=== PATIENT | male | born 1990 | race Caucasian/White ===

== ENCOUNTER 2020-04-13 00:38 | Emergency (ER) | payer SELFPAY ==
--- NOTE | 2020-04-13 02:05 | ER Document Report ---
ED GI/ - General Chief Complaint: Testicular Pain Stated Complaint: BODY PAIN Time Seen by Provider: 04/13/20 02:01 Notes: CHIEF COMPLAINT: Testicular pain HPI: 29-year-old male presenting to the emergency department complaining of bilateral testicular pain that began around 8 PM tonight. Patient states he has been having intermittent pain in the testicles over the last year. Has not seen anyone for evaluation of this issue. Denies abdominal or rectal pain. Denies penile discharge. Denies dysuria. States the pain is been more constant I started in the right testicle now in both testicles. Denies back pain or flank pain. ROS: See HPI - all other systems were reviewed and are otherwise negative Constitutional: no fever Eyes: no drainage, no blurred vision ENT: no runny nose, no sore throat Cardiovascular: no chest pain Resp: no SOB, no cough GI: no vomiting, no diarrhea, no abdominal pain : no dysuria, positive testicular pain Integumentary: no rash Allergy: no hives Musculoskeletal: no extremity pain or swelling Neurological: no numbness/tingling, no weakness MEDICATIONS: I agree with the patient medications as charted by the RN. ALLERGIES: I agree with the allergies as charted by the RN. PAST MEDICAL HISTORY/PAST SURGICAL HISTORY: Reviewed and agree as charted by RN. SOCIAL HISTORY: Reviewed and agree as charted by RN. FAMILY HISTORY: No significant familial comorbid conditions directly related to patient complaint EXAM: Reviewed vital signs as charted by RN. CONSTITUTIONAL: Alert and oriented and responds appropriately to questions. Well-appearing; well-nourished HEAD: Normocephalic; atraumatic EYES: Conjunctivae clear, sclerae non-icteric ENT: normal nose; no rhinorrhea; moist mucous membranes NECK: Supple without meningismus CARD: symmetric distal pulses RESP: Normal chest excursion without splinting or tachypnea ABD/GI: Normal bowel sounds; non-distended; soft, non-tender, no rebound, no guarding; no palpable organomegaly or masses. : Circumcised male. Bilateral testicles are descended and mildly bilaterally tender to palpation with no palpable masses. No visible inguinal or scrotal hernias on standing. No visible rash. No visible urethral discharge. No visible lesions BACK: The back appears normal and is non-tender to palpation, there is no CVA tenderness EXT: Normal ROM in all joints; no cyanosis, no effusions, no edema SKIN: Normal color for age and race; warm; dry; good turgor; no acute lesions noted NEURO: Moves all extremities equally; Motor and sensory function intact PSYCH: The patient's mood and manner are appropriate. Grooming and personal hygiene are appropriate. MDM: 29-year-old male with bilateral testicular pain began around 8 PM tonight. Has been having intermittent issues for a year. Will obtain ultrasound to evaluate for mass or epididymitis, less likely to be torsion clinically. TRAVEL OUTSIDE OF THE [place] IN LAST 30 DAYS: No - Related Data Allergies/Adverse Reactions: No Known Allergies Allergy (Unverified 03/07/12 16:38) Past Medical History - Social History Smoking Status: Current Every Day Smoker Chew tobacco use (# tins/day): No Frequency of alcohol use: None Drug Abuse: None Family History: Reviewed & Not Pertinent Patient has homicidal ideation: No Pulmonary Medical History: Reports: Hx Pneumonia Denies: Hx Tuberculosis Neurological Medical History: Denies: Hx Seizures GI Medical History: Reports: Hx Gastroesophageal Reflux Disease Traumatic Medical History: Reports: Hx Fractures Past Surgical History: Reports: Hx Appendectomy - s/p this admission. Denies: Hx Pacemaker - Immunizations Hx Diphtheria, Pertussis, Tetanus Vaccination: Yes Physical Exam - Vital signs Vitals: Temp Pulse Resp BP Pulse Ox 98.0 F 93 20 160/107 H 100 04/13/20 01:25 04/13/20 01:25 04/13/20 01:25 04/13/20 01:25 04/13/20 01:25 Course - Re-evaluation Re-evalutation: 04/13/20 05:15 Ultrasound does not show acute findings other than small bilateral hydroceles. Urine does not show evidence of infection chlamydia and gonorrhea were negative. He has no pelvic or abdominal pain to suggest an intra-abdominal pathology. Will discharge home to follow-up with urology - Vital Signs Vital signs: Temp Pulse Resp BP Pulse Ox 98.0 F 93 20 160/107 H 100 04/13/20 01:25 04/13/20 01:25 04/13/20 01:25 04/13/20 01:25 04/13/20 01:25 Discharge - Discharge Clinical Impression: Testicular pain Qualifiers: Laterality: bilateral Qualified Code(s): N50.811 - Right testicular pain; N50.812 - Left testicular pain Condition: Stable Disposition: HOME, SELF-CARE Instructions: Testicular Pain ([facility]) Additional Instructions: Follow-up closely with urology for further evaluation and treatment call for appointment. Urine and ultrasound did not show acute findings to suggest a definitive cause for your pain. Take the anti-inflammatories as prescribed. Return for worsening symptoms Prescriptions: Diclofenac Sodium [Voltaren 50 Mg Tablet.] 50 mg PO BID #20 tablet.dr Referrals: ALIYAH COVARRUBIAS MD [NO LOCAL MD] - Follow up as needed
--- NOTE | 2020-04-13 02:55 | RADIOLOGY REPORT (SQ) ---
Ultrasound scrotum and testicles on 04/13/2020 at 2:25 AM CLINICAL INDICATION: Right testicular pain for one year that worsened tonight and now there is bilateral testicular pain COMPARISON: None FINDINGS: Multiple sonographic images are obtained throughout the scrotum and testicles, both transverse and sagittal images are obtained. Bilateral testicles are homogeneous in echotexture without evidence of an intratesticular mass. Flow is demonstrated within both testicles without evidence of torsion or unilateral increased flow to suggest epididymoorchitis. Small bilateral hydroceles are noted. No other extratesticular abnormality is noted. IMPRESSION: Small bilateral hydroceles, otherwise unremarkable.
[2020-04-13] MEDS ORDERED: HYDROCODONE/ACETAMINOPHEN 5-325 MG TABLET PO ONE (02:59)
[2020-04-13] MEDS ORDERED: KETOROLAC TROMETHAMINE 60 MG/2 ML SDV IM ONE (02:59)
[2020-04-13 04:02] LABS: CHLAM PCR NOT DETECTED (NOT DETECT)
[2020-04-13 04:57] LABS: APPEARANCE,URINE CLEAR; BILIRUBIN,URINE NEGATIVE (NEGATIVE); COLOR,URINE YELLOW; GLUCOSE, URINE NEGATIVE (NEGATIVE); KETONES,URINE NEGATIVE (NEGATIVE); LEUKOCYTE ESTERASE,URINE NEGATIVE (NEGATIVE); NITRITE,URINE NEGATIVE (NEGATIVE); PROTEIN,URINE NEGATIVE (NEGATIVE); URINE SPECIFIC GRAVITY 1.018; UROBILINOGEN,URINE NEGATIVE mg/dL (<2.0)
[2020-04-13 05:52] VITALS: BP 142/99
== END 2020-04-13 05:53 | disposition home or self-care (01) ==
LOC: ER 00:38
DX: N50.811 Right testicular pain (principal); N50.812 Left testicular pain; N43.3 Hydrocele, unspecified; F17.200 Nicotine dependence, unspecified, uncomplicated
CPT/HCPCS: 99284; 96372; 81001; 87491; 87591; 76870; 93976; J1885